=== PATIENT | female | born 1945 ===

== ENCOUNTER 2024-08-23 10:41 | Day surgery (SDC) | payer OTHER ==
[2024-08-21 10:24] VITALS: BP 150/76
[~2024-08-23] VITALS: Ht 162.6 cm; Wt 77.1 kg
[~2024-08-23 10:41] MED LIST: 8 HOUR650 MG PO; ACID REDUCER20 M1 PO; AVAPRO300 MG PO; GRALISE600 MG PO; LYRICA150 MG PO; RESTORIL30 MG PO; SINGULAIR10 MG PO; SYNTHROID50 MCG PO
[2024-08-23] MEDS ORDERED: BUPIVACAINE HCL 30 ML VIAL IJ ONE (16:00)
[2024-08-23] MEDS ORDERED: IOHEXOL 240 mgI/ML 100ML BOTT IV ONE (16:00)
[2024-08-23] MEDS ORDERED: DEXAMETHASONE SODIUM PHOSPHATE 4 MG/ML VIAL IJ ONE (16:00)
[2024-08-23] MEDS ORDERED: LIDOCAINE HCL 1% 10ML VIAL IJ ONE (16:00)
== END 2024-08-23 18:45 | disposition home or self-care (01) ==
LOC: CIR.AMB 10:41
PROVIDERS: ATTEND Anesthesiology Pain Medicine
DX: M99.63 Osseous and subluxation stenosis of intervertebral foramina of lumbar region (principal); M51.26 Other intervertebral disc displacement, lumbar region; M47.26 Other spondylosis with radiculopathy, lumbar region